=== PATIENT | male | born 1940 | race Caucasian/White ===

== ENCOUNTER → 2020-06-17 09:20 | Outpatient (CLI) | payer MEDICARE, OTHER, SELFPAY ==
--- NOTE | 2020-06-17 09:21 | MR_ITS ---
PROCEDURE: MR SHOULDER RT WO CON CLINICAL INDICATION: right shoulder pain PT C/O RT SHOULDER PAIN X 2 WEEKS. PT STATES ABOUT 2 WEEKS AGO HE WAS LIFTING A TRASH CAN IT IT FELT LIKE A RUBBERBAND BUSTED IN HIS RT SHOULDER. COMPARISON: No exams were available for comparison TECHNIQUE: Routine multiplanar multi echo sequences are performed without gadolinium enhancement. FINDINGS: Full-thickness tear involves the supraspinatus tendon with retraction and atrophy of the. Incomplete tear involves the infraspinatus tendon distally. The subscapularis tendon and teres minor are intact. There does appear to be a SLAP tear of the glenoid labrum. The bicipital tendon is in place. There is a small shoulder joint effusion. There is some increased T2 signal of the greater tuberosity of the humerus with subchondral cystic change. 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 There is a mild amount of bone marrow edema within the humeral head. There is fluid signal intensity in the subdeltoid and subacromial region. Hypertrophic changes are present at the AC joint as well. There is high riding humeral head. Shoulder joint effusion is present. IMPRESSION: 1. Complete tear of the supraspinatus tendon with retraction and atrophy of the musculotendinous fibers. 2. Suspect partial tear of the distal aspect of the infraspinatus tendon 3. Slap tear of the superior glenoid labrum. 4. Shoulder joint effusion with some bone marrow edema and subchondral cystic change of the humeral head and greater tuberosity. Dictated by: Lorenzo Crane MD 06/19/2020 14:16 Lorenzo Crane MD in [place] 06/19/2020 14:16
--- NOTE | 2020-06-17 14:18 | XR_ITS ---
PROCEDURE: XR LUMBAR SPINE 2-3V CLINICAL INDICATION: pain Low back pain COMPARISON: No exams were available for comparison FINDINGS: There is normal alignment. Wedge compression changes are present involving L1 with loss of height anteriorly of approximately 50 percent age indeterminate. No obvious retropulsion. There is minimal retrolisthesis of L2 on L3 of 4 mm. Degenerative disc disease is present at L2-L3. Incidental note is made of multiple gallstones. The IMPRESSION: 1. Compression fracture of L1 age indeterminate. Consider MRI for further evaluation. 2. Degenerative disc disease L2-L3. 3. Cholelithiasis Dictated by: Lorenzo Crane MD 06/17/2020 14:52 Lorenzo Crane MD in [place] 06/17/2020 14:52
== END ==
PROVIDERS: PCP Family Medicine; Visit Provider Family Medicine
DX: M12.811 Other specific arthropathies, not elsewhere classified, right shoulder (principal); M25.511 Pain in right shoulder; M75.101 Unspecified rotator cuff tear or rupture of right shoulder, not specified as traumatic; K59.00 Constipation, unspecified
CPT/HCPCS: 72100; 73221

== ENCOUNTER → 2020-06-22 16:22 | Outpatient (CLI) | payer MEDICARE, OTHER, SELFPAY ==
--- NOTE | 2020-06-22 16:22 | MR_ITS ---
PROCEDURE: MR LUMBAR SPINE WO CON CLINICAL INDICATION: abn xray LT SIDED LOW BACK PAIN X2 WEEKS, NO INJURY. PREVIOUS XRA 06-17-20 COMPARISON: CR XR LUMBAR SPINE 2-3V from 06/17/2020 TECHNIQUE: Standard multiplanar multiecho sequences are performed without contrast. 3-D MIP and myelographic images are also rendered and reviewed FINDINGS: The spinal cord ends at the L1 level. Compression deformity involves the L1 vertebral body with loss of height anteriorly and centrally of approximately 40-50 percent. There is mild retropulsion of the posterior superior aspect of the L1 vertebral body. Overall there is decreased T1 and slight increased T2 signal the L1 vertebral body. This suggest at the wedge compression changes are at least subacute. The T2 signal is not is hyperintense as what 1 would expect for an acute fracture. The posterior superior protrusion is slightly eccentric toward the right and there is narrowing of the canal at 11 mm. There is mild kyphosis at the T12-L1 level. L1-L2: Unremarkable. L2-L3: Mild bulging disc with mild facet and ligamentum hypertrophy. L3-L4: Unremarkable. L4-5: Mild bulging disc with facet and ligamentum hypertrophy with right lateral recess narrowing causing some impingement upon the L4 and L5 nerve roots on the right. There is 2 mm anterolisthesis of L4. L5-S1: Unremarkable. There is fusion of the right SI joint. Incidental note is made of a left renal cystic lesion which is incompletely imaged. IMPRESSION: 1. 40-50 percent wedge compression changes of L1 which may be subacute with mild retropulsion of the posterior superior aspect of L1 slightly toward the right with borderline narrowing of the canal and kyphosis. 2. Mild bulging disc at L2-L3 3. Mild bulging disc with facet ligamentum hypertrophy and right lateral recess narrowing from the facet and ligamentum hypertrophy at L4-5 4. Fusion of the right SI joint. 5. No extruded herniated disc evident. Dictated by: Lorenzo Crane MD 06/23/2020 15:06 Lorenzo Crane MD in [place] 06/23/2020 15:06
== END ==
PROVIDERS: PCP Family Medicine; Visit Provider Family Medicine
DX: S32.010A Wedge compression fracture of first lumbar vertebra, initial encounter for closed fracture (principal)
CPT/HCPCS: 72148; 76376

== ENCOUNTER → 2020-07-27 15:35 | Outpatient (CLI) | payer MEDICARE, OTHER, SELFPAY ==
[2020-07-29 08:20] LABS: Hep A Ab, IgM Negative (Negative); Hepatitis B Core Antibody IgM Negative (Negative); Hepatitis B Surface Antigen Negative (Negative)
[2020-07-29 12:54] LABS: Hepatitis C Antibody <0.1 s/co ratio (0.0-0.9)
== END ==
PROVIDERS: Visit Provider Family Medicine
DX: R10.9 Unspecified abdominal pain (principal)
CPT/HCPCS: 80074

== ENCOUNTER → 2020-08-09 15:58 | Outpatient (CLI) | payer MEDICARE, OTHER, SELFPAY ==
--- NOTE | 2020-08-09 15:58 | MR_ITS ---
PROCEDURE: MR LUMBAR SPINE WO CON CLINICAL INDICATION: s/p vertebroplasty PT IS S/P VERTEBROPLASTY JUL 18, 2020 AND CONTNIUES TO HAVE LEFT SIDED LBP. PRIOR MRI L-SPINE DONE 06/22/20 COMPARISON: MR MR LUMBAR SPINE WO CON from 06/22/2020 TECHNIQUE: Standard multiplanar multiecho sequences are performed without contrast. 3-D MIP and myelographic images are also rendered and reviewed FINDINGS: The spinal cord ends at the L1-L2 level. Increased T1 and T2 signal is present in the superior posterior aspect of the T11 vertebral body. May be due to lipomatosis involvement. T11-T12: Unremarkable. T12-L1: Wedge compression changes involve the L1 vertebral body which were present on the previous exam but appears somewhat more extensive on today's exam with retropulsion of the posterior superior aspect of the L1 vertebral body centrally and on the right abutting the lower aspect of the cord without cord compression or displacement. There has been interval kyphoplasty at L1 with hypointense T1 and T2 material within the L1 vertebral body. No significant extravasation identified. There is right lateral recess narrowing. There is severe right-sided foraminal narrowing and severe left-sided foraminal narrowing along with canal stenosis. There is greater than 50 percent compression changes now present in the central aspect of the L1 vertebral body L1-L2: Unremarkable. L2-L3: Bulging disc with milder facet and ligamentum hypertrophy with mild bilateral lateral recess narrowing and mild bilateral foraminal narrowing. L3-L4: Minimal bulging disc with mild facet ligamentum hypertrophy. L4-5: Mild bulging disc with facet ligamentum hypertrophy which is more prominent on the right compared to the left with right lateral recess narrowing not significantly changed. L5-S1: Minimal bulging disc with mild facet and ligamentum hypertrophy. There is fusion of the right SI joint. No extruded herniated disc is evident. IMPRESSION: 1. Multilevel lumbar spondylosis as detailed above. Please see above for detailed description at each level. There is lateral recess and foraminal narrowing as before. 2. Wedge compression changes involve the L1 vertebral body which were present on the previous exam but appears somewhat more extensive on today's exam with retropulsion of the posterior superior aspect of the L1 vertebral body centrally and on the right abutting the lower aspect of the cord without cord compression or displacement. There has been interval kyphoplasty at L1 with hypointense T1 and T2 material within the L1 vertebral body. No extravasation identified. There is right lateral recess narrowing. There is severe bilateral foraminal narrowing which appears somewhat worse and there is canal stenosis which is slightly worse. Dictated by: Lorenzo Crane MD 08/11/2020 15:12 Lorenzo Crane MD in [place] 08/11/2020 15:12
== END ==
PROVIDERS: PCP Family Medicine; Visit Provider Family Medicine
DX: G89.18 Other acute postprocedural pain (principal); M54.5 Low back pain
CPT/HCPCS: 72148; 76376

== ENCOUNTER → 2022-07-16 08:58 | Outpatient (POV) | payer MEDICARE, OTHER, SELFPAY | PROVIDERS: Visit Provider Dermatology | DX: Z00.00 Encounter for general adult medical examination without abnormal findings (principal) ==

== ENCOUNTER → 2023-07-22 09:11 | Outpatient (POV) | payer MEDICARE, OTHER, SELFPAY | PROVIDERS: PCP Family Medicine; Visit Provider Dermatology | DX: Z00.00 Encounter for general adult medical examination without abnormal findings (principal) ==